=== PATIENT | male | born 1975 | race Caucasian/White ===

== ENCOUNTER 2023-10-21 02:46 | Emergency (ER) | payer BC, OTHER ==
[~2023-10-21] VITALS: Ht 180.3 cm; Wt 93.0 kg
[2023-10-21 03:22] LABS: Basophils # (auto) 0.1 10 ^3/uL (0-0.2); Basophils % (auto) 0.6 % (0.0-2.0); Eosinophils # (auto) 0.2 10 ^3/uL (0-0.8); Eosinophils % (auto) 1.6 % (0.0-7.0); Hematocrit 44.3 % (41.0-53.0); Lymphocytes # (auto) 1.7 10 ^3/uL (0.4-5.4); Lymphocytes % (auto) 12.2 % (10.0-50.0); Mean Corpuscular Hemoglobin 29.3 pg (28.0-32.0); Mean Corpuscular Hgb Conc. 33.9 g/dL (32.0-36.0); Mean Corpuscular Volume 86.5 fL (80.0-100.0); Monocytes # (auto) 0.7 10 ^3/uL (0-1.3); Monocytes % (auto) 4.9 % (0.0-12.0); Neutrophils # (auto) 10.9 10 ^3/uL (1.6-8.6); Neutrophils % (auto) 80.7 % (37.0-80.0); Nucleated Red Blood Cells % 0.1 %; Red Blood Cells 5.13 10^6/uL (4.5-5.90); White Blood Cell 13.5 10^3/uL (4.4-10.8)
[2023-10-21 03:53] LABS: Chloride 105 mmol/L (98-107); Potassium 3.9 mmol/L (3.5-5.1); Sodium 137 mmol/L (136-145)
[2023-10-21 03:54] LABS: Calcium 8.7 mg/dL (8.7-10.4)
[2023-10-21 03:59] LABS: BUN/Creatinine Ratio 9.5 (10.0-20.0); Blood Urea Nitrogen 12 mg/dL (9-23); Glucose 115 mg/dL (74-106)
[2023-10-21 04:30] VITALS: BP 138/78; PULSE 99; RESP 13; TEMP 98.9; O2SAT 97
[2023-10-21 04:59] LABS: Anion Gap 9 (5-15); Carbon Dioxide 23 mmol/L (20-30)
[2023-10-21] MEDS: LIDOCAINE VISCOUS 2% 15ML UD PO ONE (05:24)
[2023-10-21] MEDS: MAALOX PLUS or MAALOX 30 ML PO ONE (05:25)
[2023-10-21] MEDS: DONNATAL 5ml ORAL Elix (BELLADONNA ALK-PHENOBARB) PO ONE (05:25)
== END 2023-10-21 05:32 | disposition home or self-care (01) ==
LOC: ER 02:46
DX: M54.2 Cervicalgia (principal); R07.89 Other chest pain; Z88.8 Allergy status to other drugs, medicaments and biological substances
CPT/HCPCS: 36415; 71045; 80048; 83880; 84484; 85025; 93005